=== PATIENT | female | born 1995 | race Caucasian/White ===

== ENCOUNTER 2018-09-13 10:00 | Observation (INO) | payer BC | END 2018-09-13 11:10 | disposition home or self-care (01) | LOC: EDBD → SPU 10:00 | PROVIDERS: ADMIT Obstetrics & Gynecology; ATTEND Obstetrics & Gynecology | DX: O99.89 Other specified diseases and conditions complicating pregnancy, childbirth and the puerperium (principal); M54.9 Dorsalgia, unspecified; O26.893 Other specified pregnancy related conditions, third trimester; R10.9 Unspecified abdominal pain; Z3A.39 39 weeks gestation of pregnancy | CPT/HCPCS: 81002; G0378 ==

== ENCOUNTER 2018-09-14 15:37 | Observation (INO) | payer BC ==
[~2018-09-14] VITALS: Ht 165.1 cm; Wt 75.7 kg
[2018-09-14] MEDS ORDERED: LR 1,000 ML IV ONE ×2 (16:00→17:00)
== END 2018-09-14 17:55 | disposition home or self-care (01) ==
LOC: SPU 15:37
PROVIDERS: ADMIT Obstetrics & Gynecology; ATTEND Obstetrics & Gynecology
DX: O62.9 Abnormality of forces of labor, unspecified (principal); Z3A.39 39 weeks gestation of pregnancy
CPT/HCPCS: G0378

== ENCOUNTER 2018-09-15 16:46 | Inpatient (IN) | payer BC ==
[~2018-09-15] VITALS: Ht 165.1 cm; Wt 75.7 kg
[2018-09-15] MEDS ORDERED: LR 1,000 ML IV SCH (17:46)
[2018-09-15] MEDS ORDERED: OXYTOCIN/0.9 % SODIUM CHLORIDE 1,000 ML IV SCH (17:46)
[2018-09-15 17:52] VITALS: BP_SYST 120
[2018-09-15] MEDS ORDERED: NALBUPHINE HCL 10 MG/ML AMP IM PRN (18:00)
[2018-09-15] MEDS ORDERED: TERBUTALINE SULFATE 1 MG/ML VIAL SUBCUT ONE (18:00)
[2018-09-15] MEDS ORDERED: NALBUPHINE HCL 10 MG/ML AMP IVP PRN (18:00)
[2018-09-15 18:41] LABS: BASOPHILS % (AUTO) 0.3 % (0.0-2.0); EOSINOPHILS % (AUTO) 0.1 % (0.0-4.0); HEMATOCRIT 32.6 % (36-48); HEMOGLOBIN 10.8 g/dL (12.0-16.0); LYMPHOCYTES % (AUTO) 6.5 % (20.5-51.5); MEAN CORPUSCULAR HEMOGLOBIN 28 pg (27-31); MEAN CORPUSCULAR HGB CONC 33 % (32-36); MEAN CORPUSCULAR VOLUME 86 fL (79.0-98.0); MONOCYTES # (AUTO) 0.9 K/uL (0.0-1.0); NEUTROPHILS # (AUTO) 13.6 K/uL (1.8-7.7); NEUTROPHILS % (AUTO) 87.1 % (40.0-70.0); PLATELET COUNT (AUTO) 238 K/uL (130-430); RED BLOOD CELL COUNT(AUTO) 3.79 MIL/uL (4.2-6.2); RED CELL DISTRIBUTION WIDTH 13.7 % (9.0-15.0); WHITE BLOOD COUNT (AUTO) 15.7 K/uL (4.8-10.8)
[2018-09-15] MEDS ORDERED: fentaNYL CITRATE/PF 100 MCG/2 ML AMP ONE (20:38)
[2018-09-15] MEDS ORDERED: ROPIVACAINE 0.2% 100 ML ONE (20:39)
[2018-09-15] MEDS ORDERED: LR 500 ML IV ONE (21:12)
[2018-09-15] MEDS ORDERED: FENT2mCg/mL-ROPIVA0.2%/NS EPID 150 ML EP SCH (21:15)
[2018-09-16] MEDS ORDERED: ROPIVACAINE 0.2% 100 ML ONE (11:17)
[2018-09-16] MEDS ORDERED: ACETAMINOPHEN 500 MG TABLET PO ONE (11:45)
[2018-09-16] MEDS ORDERED: ACETAMINOPHEN 500 MG TABLET ONE (11:49)
[2018-09-16] MEDS ORDERED: GENTAMICIN SULFATE IV ONE (12:45)
[2018-09-16] MEDS ORDERED: NS IV ONE (12:45)
[2018-09-16] MEDS ORDERED: AMPICILLIN SODIUM 2 GM in NS 100 ML IV ONE (13:00)
[2018-09-16] MEDS ORDERED: AMPICILLIN SODIUM 1 GM VIAL ONE (13:06)
[2018-09-16] MEDS ORDERED: AMPICILLIN SODIUM 2 GM VIAL ONE (13:08)
[2018-09-16] MEDS ORDERED: OXYTOCIN/0.9 % SODIUM CHLORIDE 1,000 ML IV ONE (13:34)
[2018-09-16] MEDS ORDERED: OXYTOCIN/0.9 % SODIUM CHLORIDE 1,000 ML IV SCH (13:34)
[2018-09-16] MEDS ORDERED: DOCUSATE SODIUM 100 MG CAPSULE PO PRN (13:45)
[2018-09-16] MEDS ORDERED: HYDROCORTISONE 0.5%, 28.35 GM TOPICAL CREAM TP PRN (13:45)
[2018-09-16] MEDS ORDERED: WITCH HAZEL LEAF 1 MED.PAD MED.PAD TP PRN (13:45)
[2018-09-16] MEDS ORDERED: ACETAMINOPHEN 325 MG TABLET PO PRN (13:45)
[2018-09-16] MEDS ORDERED: RHO(D) IMMUNE GLOBULIN/MALTOSE 1500 UNITS/1.3 ML (WINHRO) IM PRN (13:45)
[2018-09-16] MEDS ORDERED: LANOLIN 7 GM OINT. TP PRN (13:45)
[2018-09-16] MEDS ORDERED: OXYCODONE/ACETAMINOPHEN 5-325 TABLET PO PRN ×2 (13:45)
[2018-09-16] MEDS ORDERED: ANUSOL 1 EA SUPP.RECT (PREPARATION H) RC PRN (13:45)
[2018-09-16] MEDS ORDERED: MEASLES,MUMPS&RUBELLA VACC/PF 12500 UNIT/0.5 ML VIAL SUBQ PRN (13:45)
[2018-09-16] MEDS ORDERED: METHYLERGONOVINE MALEATE 0.2 MG TABLET PO PRN (13:45)
[2018-09-16] MEDS ORDERED: SENNOSIDES/DOCUSATE SODIUM 1 TAB TABLET(SENOKOT-S) PO PRN (13:45)
[2018-09-16] MEDS ORDERED: DERMOPLAST SPRAY TP PRN (13:45)
[2018-09-16] MEDS ORDERED: AMPICILLIN SODIUM 2 GM in NS 100 ML IV SCH (18:00)
[2018-09-16] MEDS: IBUPROFEN 600 MG TABLET PO SCH (18:58)
[2018-09-16] MEDS ORDERED: TEMAZEPAM 15 MG CAPSULE PO PRN (21:00)
[2018-09-16] MEDS ORDERED: GENTAMICIN 100 mg/50 mL NS 50 ML IV ONE (21:00)
[2018-09-17] MEDS: IBUPROFEN 600 MG TABLET PO SCH ×3 (00:19→12:22)
[2018-09-17 06:55] LABS: HEMATOCRIT 27.9 % (36-48); HEMOGLOBIN 9.1 g/dL (12.0-16.0)
== END 2018-09-17 17:00 | disposition home or self-care (01) | DRG 807 ==
LOC: OBSVTOIN 16:46 → SPU 16:46
PROVIDERS: ADMIT Obstetrics & Gynecology; ATTEND Obstetrics & Gynecology
PROC: 10E0XZZ Delivery of Products of Conception, External Approach (ICD-10-PCS; principal; 2018-09-16)
PROC: 0KQM0ZZ Repair Perineum Muscle, Open Approach (ICD-10-PCS; 2018-09-16)
PROC: 3E0R3BZ Introduction of Anesthetic Agent into Spinal Canal, Percutaneous Approach (ICD-10-PCS; 2018-09-16)
PROC: 00HU33Z Insertion of Infusion Device into Spinal Canal, Percutaneous Approach (ICD-10-PCS; 2018-09-16)
DX: O41.1230 Chorioamnionitis, third trimester, not applicable or unspecified (principal); Z37.0 Single live birth; Z3A.39 39 weeks gestation of pregnancy; O70.1 Second degree perineal laceration during delivery
CPT/HCPCS: 36415; 81002-TC; 85018-TC; 85025; 86886; 86900; 86901; J0290; J1580; J2590; J2795; J3010; J7120